=== PATIENT | male | born 1960 | race Caucasian/White ===

== ENCOUNTER 2016-09-12 07:02 | Observation (INO) ==
[2016-09-12] MEDS ORDERED: 0.9 % Sodium Chloride 1,000 ML IVC ONE (07:20)
[2016-09-12] MEDS ORDERED: Ondansetron 4 MG/2 ML VIAL IVP ONE (07:21)
[2016-09-12] MEDS ORDERED: *HR* Morphine 2 MG/ML SYRINGE IVP ONE ×3 (07:21→11:23)
[2016-09-12 07:41] LABS: Hematocrit 43.2 % (37.5-50.1); Hemoglobin 14.1 g/dL (12.9-16.9); Immature Platelets 10.4 % (1.1-6.1); Mean Corpuscular HGB Conc 32.6 g/dL (31.6-35.5); Mean Corpuscular Hemoglobin 28.2 pg (28.0-33.3); Mean Corpuscular Volume 86.4 fL (83.0-100.0); Mean Platelet Volume 11.5 fL (9.4-12.4); Nucleated Red Blood Cells 2.1 /100 WBC (0); Platelet Count 55 K/mcL (140-400); Red Cell Distribution Width 13.2 % (11.5-14.5)
[2016-09-12 07:47] LABS: INR 1.4; Prothrombin Time 15.4 Seconds (9.4-12.1)
[2016-09-12 07:49] LABS: Activated Partial Thrombo Time 32.1 Seconds (26.0-36.0)
[2016-09-12 07:50] LABS: BUN/Creatinine Ratio 13 (6-26); Blood Urea Nitrogen 15 mg/dL (8-26); Calcium 10.6 mg/dL (8.6-10.8); Carbon Dioxide 29 mEq/L (19-29); Chloride 101 mEq/L (98-109); Glucose 110 mg/dL (70-99); Osmolality,Calculated 293 (280-300); Potassium 4.5 mEq/L (3.5-4.5); Sodium 141 mEq/L (136-145); eGFR For African Americans > 60 (> 60); eGFR For Non-African Americans > 60 (> 60)
[2016-09-12 08:15] LABS: Lymphocytes # 2.5 K/mcL (0.6-4.6); Monocytes # 0.3 K/mcL (0.0-1.3); Neutrophils # 3.5 K/mcL (1.6-8.9); Platelet Estimate Decreased (Normal)
--- NOTE | 2016-09-12 09:17 | Emergency Department Note ---
Disposition Clinical Impression: Chest pain Qualifiers: Chest pain type: unspecified Qualified Code(s): R07.9 - Chest pain, unspecified Dyspnea Qualifiers: Dyspnea type: shortness of breath Qualified Code(s): R06.02 - Shortness of breath Disposition: Home, Self-Care Condition: Fair Time of Disposition: 09:23 SOB HPI - General Chief Complaint: ED Shortness of Breath/Dyspnea Stated Complaint: MARINO Time Seen by Provider: 09/12/16 07:19 Source: patient, family Mode of arrival: private vehicle Limitations: no limitations Nursing Notes Reviewed: Yes Vital Signs Reviewed: Yes - History of Present Illness 56-year-old male presents to the emergency department with complaint of shortness of breath and chest discomfort. Patient states that this began at approximately 0400 hours. Patient was recently seen here in the emergency department 5 days ago for similar symptoms but declined admission for further evaluation. Patient states that the chest discomfort and shortness of breath occurred while he was at rest. He denies any recent fever, chills, nausea or vomiting. He has no additional complaints or concerns at this time. Pt Subjective Complaint: shortness of breath, pain with inspiration, chest pain Onset (ago): hour(s) Severity: moderate, severe Consistency/Duration: intermittent, gradually worsening Improves with: nothing Worsens with: exertion Associated symptoms: Reports: chest pain, pain with inspiration Cough present: Yes Cough Description: Involuntary, Non-Productive Cough Frequency: Intermittent Sputum production: No Sputum Amount: None - Related Data Home oxygen amount: none Home Medications Medication Instructions Recorded Confirmed Amitriptyline [Elavil] 25 mg PO HS PRN 08/25/15 09/12/16 Atorvastatin [Lipitor] 80 mg PO HS 08/25/15 09/12/16 traMADol [Ultram] 50 mg PO TID PRN 08/25/15 09/12/16 Aspirin Enteric Coated [Aspirin EC] 81 mg PO DAILY 09/22/15 09/12/16 Cholecalciferol (Vitamin D3) 1,000 unit PO DAILY 09/12/16 09/12/16 [Vitamin D] Furosemide [Lasix] 20 mg PO AD PRN 09/12/16 09/12/16 Lisinopril [Zestril] 10 mg PO DAILY 09/12/16 09/12/16 Omeprazole [PriLOSEC] 40 mg PO DAILY 09/12/16 09/12/16 Tamsulosin [Flomax] 0.4 mg PO DAILY 09/12/16 09/12/16 Allergies Allergy/AdvReac Type Severity Reaction Status Date / Time Penicillins Allergy See Verified 09/12/16 10:05 Comments All systems ED: reviewed and negative except as stated. Constitutional: Denies: fever, chills Cardiovascular: Reports: chest pain. Denies: palpitations Respiratory: Reports: cough, dyspnea Gastrointestinal: Denies: abdominal pain, nausea, vomiting Musculoskeletal: Denies: back pain, neck pain Neurological: Denies: headache Psychiatric: Denies: anxiety, depression, suicidal thoughts, homicidal thoughts Past Medical History - Past Medical History Attestation: Yes The following information was validated with the patient. Source: patient, nursing notes reviewed Medical history: Reports: cancer, hyperlipidemia, hypertension, other Surgical history: Reports: orthopedic, other, other Psychiatric history: Reports: anxiety, depression - Social History Smoking Status: Former smoker Smokeless Tobacco Status: Yes Alcohol use: Reports: none Drug use: Reports: none Physical Exam - General Limitations: no limitations General appearance: alert, in no apparent distress - Head Head exam: atraumatic, normocephalic, normal inspection - Eye Eye exam: Present: normal appearance, PERRL - Neck Neck exam: Present: normal inspection, full ROM, trachea midline - Chest Chest inspection: Present: normal inspection, symmetric chest wall rise - Respiratory Respiratory exam: Present: normal lung sounds bilaterally. Absent: respiratory distress - Cardiovascular Cardiovascular exam: Present: regular rate, normal rhythm, normal heart sounds - Extremities Exam Extremities exam: Present: normal inspection, full ROM. Absent: tenderness, pedal edema - Expanded Lower Extremity Exam Gait: observed and normal - Back Exam Back exam: Present: normal inspection, full ROM. Absent: tenderness - Neurological Exam Neurological exam: Present: alert, oriented X3 - Psychiatric Psychiatric exam: Present: normal affect, normal mood - Skin Skin exam: Present: warm, dry, intact, normal color Course Vital Signs Temperature 98.0 F 09/12/16 07:03 Pulse Rate 82 09/12/16 07:03 Respiratory Rate 25 09/12/16 07:03 Blood Pressure 161/82 09/12/16 07:03 O2 Sat by Pulse Oximetry 99 09/12/16 07:03 Temperature 98.3 F 08/07/17 15:06 Pulse Rate 80 09/13/16 15:06 Respiratory Rate 14 09/13/16 15:06 Blood Pressure 144/77 09/13/16 15:06 O2 Sat by Pulse Oximetry 97 09/13/16 15:06 Oxygen Delivery Oxygen Delivery Room Air Shortness of Breath/Dyspnea - Lab Data Lab results reviewed: Yes I reviewed the patient's lab results. Result diagrams: 09/13/16 03:40 09/13/16 03:40 Lab Results 09/12/16 09/12/16 09/12/16 Range/Units 07:14 07:14 07:14 WBC 6.3 (4.3-11.1) K/mcL RBC 5.00 (4.19-5.50) M/mcL Hgb 14.1 (12.9-16.9) g/dL Hct 43.2 (37.5-50.1) % MCV 86.4 (83.0-100.0) fL MCH 28.2 (28.0-33.3) pg MCHC 32.6 (31.6-35.5) g/dL RDW 13.2 (11.5-14.5) % Plt Count 55 L (140-400) K/mcL MPV 11.5 (9.4-12.4) fL Seg Neutrophils % 52.0 % Band Neutrophils % 4.0 (0-4) % Lymphocytes % 40.0 % Monocytes % 4.0 % Neutrophils # 3.5 (1.6-8.9) K/mcL Lymphocytes # 2.5 (0.6-4.6) K/mcL Monocytes # 0.3 (0.0-1.3) K/mcL Nucleated RBCs/100 WBC 2.1 H (0) /100 WBC Platelet Estimate Decreased L (Normal) Immature Plt Fraction 10.4 H (1.1-6.1) % PT 15.4 H (9.4-12.1) Seconds INR 1.4 APTT 32.1 (26.0-36.0) Seconds Sodium 141 (136-145) mEq/L Potassium 4.5 (3.5-4.5) mEq/L Chloride 101 (98-109) mEq/L Carbon Dioxide 29 (19-29) mEq/L BUN 15 (8-26) mg/dL Creatinine 1.17 (0.72-1.25) mg/dL Est GFR ( Amer) > 60 (> 60) Est GFR (Non-Af Amer) > 60 (> 60) BUN/Creatinine Ratio 13 (6-26) Glucose 110 H (70-99) mg/dL Calculated Osmolality 293 (280-300) Lactic Acid (0.5-2.2) mmol/L Calcium 10.6 (8.6-10.8) mg/dL Troponin I (0-0.03) ng/mL B-Natriuretic Peptide (0-100) pg/mL 09/12/16 09/12/16 09/12/16 Range/Units 07:14 07:14 07:14 WBC (4.3-11.1) K/mcL RBC (4.19-5.50) M/mcL Hgb (12.9-16.9) g/dL Hct (37.5-50.1) % MCV (83.0-100.0) fL MCH (28.0-33.3) pg MCHC (31.6-35.5) g/dL RDW (11.5-14.5) % Plt Count (140-400) K/mcL MPV (9.4-12.4) fL Seg Neutrophils % % Band Neutrophils % (0-4) % Lymphocytes % % Monocytes % % Neutrophils # (1.6-8.9) K/mcL Lymphocytes # (0.6-4.6) K/mcL Monocytes # (0.0-1.3) K/mcL Nucleated RBCs/100 WBC (0) /100 WBC Platelet Estimate (Normal) Immature Plt Fraction (1.1-6.1) % PT (9.4-12.1) Seconds INR APTT (26.0-36.0) Seconds Sodium (136-145) mEq/L Potassium (3.5-4.5) mEq/L Chloride (98-109) mEq/L Carbon Dioxide (19-29) mEq/L BUN (8-26) mg/dL Creatinine (0.72-1.25) mg/dL Est GFR ( Amer) (> 60) Est GFR (Non-Af Amer) (> 60) BUN/Creatinine Ratio (6-26) Glucose (70-99) mg/dL Calculated Osmolality (280-300) Lactic Acid 1.1 (0.5-2.2) mmol/L Calcium (8.6-10.8) mg/dL Troponin I 0.00 (0-0.03) ng/mL B-Natriuretic Peptide 86 (0-100) pg/mL - Radiology Data Radiology results reviewed: Yes I reviewed the patient's radiology results. - EKG Data EKG attestation: Yes I reviewed and interpreted this EKG. EKG shows normal: Reports: sinus rhythm Rate: Reports: normal Rhythm: Reports: NSR [place]/QRS: Reports: normal
[2016-09-12] MEDS ORDERED: Levofloxacin 750 MG/150 ML 750 MG/150 ML BAG IVPB ONE (09:19)
[2016-09-12] MEDS ORDERED: Naloxone 0.4 MG/ML INJ IVP PRN (12:32)
[2016-09-12] MEDS ORDERED: Ondansetron 4 MG/2 ML VIAL IVP PRN (12:32)
[2016-09-12] MEDS ORDERED: Ketorolac 30 MG/ML VIAL IVP ONE (13:07)
--- NOTE | 2016-09-12 13:16 | Internal Med History&Physical ---
<Jane Soto M - Last Filed: 09/12/16 13:11> Date of Encounter: 09/12/16 Time of Encounter: 13:12 Assessment and Plan (1) Chest pain Current visit: Yes Status: Acute Patient reporting severe sharp chest pain radiating from back. Reproducible with palpation, worse with movement. EKG showed NSR. Initial troponin negative. Suspect pain is musculo-skeletal, but will rule out ACS. Continuous case monitor serial troponins echocardiogram cardiology consulted. NPO after midnight for AM testing. Qualifiers: Chest pain type: unspecified Qualified Code(s): R07.9 - Chest pain, unspecified (2) Pneumonia Current visit: Yes Status: Acute CTA of chest shows enlarging opacity in right lower lobe suspicious for pneumonia, though nodule not ruled out. Patient reporting poor appetite, fevers , chills, and cough. IVPB Levaquin. titrate oxygen to maintain saturation > 92% duonebs QID PRN. Qualifiers: Pneumonia type: due to unspecified organism Laterality: right Lung location: lower lobe of lung Qualified Code(s): J18.1 - Lobar pneumonia, unspecified organism (3) Thoracic back pain Current visit: Yes Status: Acute Patient reporting severe pain to his back radiating to his chest. Worse with movement, palpation. Not significantly relieved by morphine. One time dose of Flexeril ordered. Toradal Q6h PRN. Dilaudid Q4hr prn. Qualifiers: Chronicity: unspecified Back pain laterality: midline Qualified Code(s): M54.6 - Pain in thoracic spine (4) Thrombocytopenia Current visit: Yes Status: Acute Patient with thrombocytopenia, Plt of 55 today. He was recently seen by hematology who recommended outpatient follow up for bone marrow biopsy. Plan for appointment with Heme/onc on discharge. (5) Lung nodule Current visit: Yes Status: Acute CTA revealed opacity in RLL enlarged from previous study. Consistent with Pnuemonia given patient's reports of fever, chills, poor appetite and cough. Will treat for pneumonia. However, given patient's significant smoking history , will need follow up with heme/onc as outpatient and Surveillance CTs to follow possible nodule. (6) DVT prophylaxis Current visit: Yes Status: Acute sequential compression devices. Thrombocytopenic with Plt of 55, pharmacologic prophylaxis contraindicated. Internal Medicine - H&P: HPI Chief complaint: chest pain Admitted From: Emergency Dept Plans for Post Hospital Care: Home History of present illness: Mr. Alston is a 56 year old male with hypertension, hyperlipidemia, sleep apnea, COPD, thrombocytopenia recently diagnosed, presented to the emergency department today with complaints of chest pain and shortness of breath. Patient reports that pain started at 4 AM woke him from sleep, he reports it is in his back radiating around to his chest, his severe, only mildly relieved by pain medicine given in the ED. He describes the pain as sharp, severe, is worse with movement of his arms, with walking, and with palpation. He reports it feels the best when he is standing still and not moving. She had this pain on and off for the last week or so, usually presenting in the morning but relieving after half hour, at this time his pain is not relieved. He also reports a nonproductive cough, fevers and chills on and off, and occasional dizziness. He denies any palpitations, headache, diarrhea, nausea, vomiting. He reports shortness of breath that he attributes to the pain. Evaluation in emergency department revealed thrombocytopenia with platelets of 55, troponin was negative at 0.00, lactate was normal at 1.1. BNP was normal at 86. EKG showed normal sinus rhythm. Chest x-ray showed no acute process. CTA showed no evidence of acute pulmonary embolism, enlarging focal opacity in right lower lobe suspected pneumonia, but follow-up with CT in 3 months recommended. On exam, patient alert and oriented, in no acute distress. Heart has regular rate and rhythm lungs with bilateral rhonchi. Peripheral pulses intact no peripheral edema. Palpation of back and chest reproduced pain. Manipulation of upper extremities also exacerbated patient's pain. Past Med Surg Social Fam HX - Past Medical History Medical history: COPD, hyperlipidemia, hypertension, other (thrombocytopenia) Psychiatric history: anxiety, depression - Past Surgical History Surgical History: orthopedic, other, other (cleft palate, wrist, vocal cord polyp removal) - Social History Smoking Status: Former smoker (60 pack year history) Smokeless Tobacco Status: Yes Alcohol use: none Drug use: none - Family History Father Living Status: Still Living Hx Family Cardiac Disorders: Yes Hx Family Cancer: Yes Mother Living Status: Hx Family Cardiac Disorders: Yes (Myocardial infarction, hypertension) Hx Family Cancer: Yes (Breast cancer) Hx Family Neurologic Disorders: Yes (Cerebrovascular accident) Sister Living Status: Hx Family Cancer: Yes (Uterine cancer) Hx Family Neurologic Disorders: Yes (Brain aneurysm) Internal Medicine - H&P: Meds Amitriptyline [Elavil] 25 mg PO HS PRN 08/25/15 [History] Atorvastatin [Lipitor] 80 mg PO HS 08/25/15 [History] traMADol [Ultram] 50 mg PO TID PRN 08/25/15 [History] Aspirin Enteric Coated [Aspirin EC] 81 mg PO DAILY 09/22/15 [History] Cholecalciferol (Vitamin D3) [Vitamin D] 1,000 unit PO DAILY 09/12/16 [History] Furosemide [Lasix] 20 mg PO AD PRN 09/12/16 [History] Lisinopril [Zestril] 10 mg PO DAILY 09/12/16 [History] Omeprazole [PriLOSEC] 40 mg PO DAILY 09/12/16 [History] Tamsulosin [Flomax] 0.4 mg PO DAILY 09/12/16 [History] Allergies Penicillins Allergy (Verified 09/12/16 10:05) See Comments Patient states this reaction occurred when he was a child- All Systems PM: A 10-system review of systems was performed and is negative for pertinent findings except as documented above in the HPI. - Constitutional Constitutional: chills, fever(s), no night sweats - EENT Eyes: no change in vision, no discharge, no pain, no photophobia Ears: no ear discharge, no ear pain, no tinnitus Nose, mouth and throat: no dysphagia, no nasal discharge, no neck pain, no sore throat - Cardiovascular Cardiovascular ROS IM: chest pain, dyspnea, lightheadedness, no diaphoresis, no palpitations, no syncope - Respiratory Respiratory: cough, no dyspnea, no wheezing, no excessive phlegm production - Gastrointestinal Gastrointestinal: no abdominal pain, no diarrhea, no hematemesis, no hematochezia, no melena, no nausea, no vomiting - Musculoskeletal Musculoskeletal ROS IM: numbness, tingling (chronic, in extremities) - Integumentary Integumentary IM: no rash, no unusual bruising - Neurological Neurological ROS: no confusion, no convulsions, no focal weakness, no numbness, no tingling, no tremor(s) - Hematologic/Lymphatic Hematologic/Lymphatic: no easy bruising - Constitutional Vitals: Temp Pulse Resp BP Pulse Ox 98.7 F 75 16 133/81 93 09/12/16 11:54 09/12/16 11:54 09/12/16 11:54 09/12/16 11:54 09/12/16 11:54 General appearance: Present: A&O X 3, pleasant, no acute distress - Head Head exam: Present: atraumatic, normocephalic - Eye Eye exam: Present: PERRL, conjuntiva pink, sclera anicteric Pupils: Present: PERRL - Neck Neck exam general surgery: Present: supple, trachea midline. Absent: lymphadenopathy - Respiratory Respiratory exam: Present: rhonchi. Absent: accessory muscle use, rales, wheezes - Cardiovascular Cardiovascular exam: Present: RRR, +S1, +S2. Absent: diastolic murmur, gallop, rubs, systolic murmur - GI/Abdominal GI/Abdominal exam: Present: normal bowel sounds, soft, no peritoneal signs. Absent: distended, tenderness - Extremities Exam Extremities exam: Present: warm, radial pulses palpable and symetrical. Absent : calf tenderness, cyanotic, pedal edema - Back Exam Back exam: Present: paraspinal tenderness, vertebral tenderness - Neurological Exam Neurological exam: Present: CN II-XII intact, oriented X3, no focal deficits. Absent: facial droop, speech deficit - Skin Skin exam: Present: dry, intact Internal Med - H&P Results - Labs CBC & Chem 7: 09/12/16 07:14 09/12/16 07:14 Labs: All Lab Results (24 Hours) 09/12/16 09/12/16 09/12/16 Range/Units 07:14 07:14 07:14 WBC 6.3 (4.3-11.1) K/mcL RBC 5.00 (4.19-5.50) M/mcL Hgb 14.1 (12.9-16.9) g/dL Hct 43.2 (37.5-50.1) % MCV 86.4 (83.0-100.0) fL MCH 28.2 (28.0-33.3) pg MCHC 32.6 (31.6-35.5) g/dL RDW 13.2 (11.5-14.5) % Plt Count 55 L (140-400) K/mcL MPV 11.5 (9.4-12.4) fL Seg Neutrophils % 52.0 % Band Neutrophils % 4.0 (0-4) % Lymphocytes % 40.0 % Monocytes % 4.0 % Neutrophils # 3.5 (1.6-8.9) K/mcL Lymphocytes # 2.5 (0.6-4.6) K/mcL Monocytes # 0.3 (0.0-1.3) K/mcL Nucleated RBCs/100 WBC 2.1 H (0) /100 WBC Platelet Estimate Decreased L (Normal) Immature Plt Fraction 10.4 H (1.1-6.1) % PT 15.4 H (9.4-12.1) Seconds INR 1.4 APTT 32.1 (26.0-36.0) Seconds Sodium 141 (136-145) mEq/L Potassium 4.5 (3.5-4.5) mEq/L Chloride 101 (98-109) mEq/L Carbon Dioxide 29 (19-29) mEq/L BUN 15 (8-26) mg/dL Creatinine 1.17 (0.72-1.25) mg/dL Est GFR ( Amer) > 60 (> 60) Est GFR (Non-Af Amer) > 60 (> 60) BUN/Creatinine Ratio 13 (6-26) Glucose 110 H (70-99) mg/dL Calculated Osmolality 293 (280-300) Lactic Acid (0.5-2.2) mmol/L Calcium 10.6 (8.6-10.8) mg/dL Troponin I (0-0.03) ng/mL B-Natriuretic Peptide (0-100) pg/mL 09/12/16 09/12/16 09/12/16 Range/Units 07:14 07:14 07:14 WBC (4.3-11.1) K/mcL RBC (4.19-5.50) M/mcL Hgb (12.9-16.9) g/dL Hct (37.5-50.1) % MCV (83.0-100.0) fL MCH (28.0-33.3) pg MCHC (31.6-35.5) g/dL RDW (11.5-14.5) % Plt Count (140-400) K/mcL MPV (9.4-12.4) fL Seg Neutrophils % % Band Neutrophils % (0-4) % Lymphocytes % % Monocytes % % Neutrophils # (1.6-8.9) K/mcL Lymphocytes # (0.6-4.6) K/mcL Monocytes # (0.0-1.3) K/mcL Nucleated RBCs/100 WBC (0) /100 WBC Platelet Estimate (Normal) Immature Plt Fraction (1.1-6.1) % PT (9.4-12.1) Seconds INR APTT (26.0-36.0) Seconds Sodium (136-145) mEq/L Potassium (3.5-4.5) mEq/L Chloride (98-109) mEq/L Carbon Dioxide (19-29) mEq/L BUN (8-26) mg/dL Creatinine (0.72-1.25) mg/dL Est GFR ( Amer) (> 60) Est GFR (Non-Af Amer) (> 60) BUN/Creatinine Ratio (6-26) Glucose (70-99) mg/dL Calculated Osmolality (280-300) Lactic Acid 1.1 (0.5-2.2) mmol/L Calcium (8.6-10.8) mg/dL Troponin I 0.00 (0-0.03) ng/mL B-Natriuretic Peptide 86 (0-100) pg/mL - Diagnostic Studies CT scan - chest Additional comments: Chest CTA 09/12/16 07:21 IMPRESSION: No pulmonary embolus. Enlarging, focal opacity in the right lower lobe, suspected pneumonia. Underlying pulmonary nodule is still concern. Follow-up CT chest, after treatment, is recommended in 3 months. D/ / Scott Manrique MD / Scott Manrique MD Interpreting Provider: Scott Manrique MD Chest x-ray Additional comments: Chest X-Ray 09/12/16 07:20 IMPRESSION: No acute process. D/ / Chucky Lennon MD / Chucky Lennon MD Interpreting Provider: Chucky Lennon MD <Willis Monte - Last Filed: 09/12/16 18:53> Date of Encounter: 09/12/16 Internal Medicine - H&P: HPI History of present illness: Mr. Alston is a 56 year old male All Systems PM: A 10-system review of systems was performed and is negative for pertinent findings except as documented above in the HPI. - Constitutional Vitals: Temp Pulse Resp BP Pulse Ox 97.7 F 75 16 153/78 95 09/12/16 15:48 09/12/16 15:48 09/12/16 15:48 09/12/16 15:48 09/12/16 15:48 Internal Med - H&P Results - Labs CBC & Chem 7: 09/12/16 07:14 09/12/16 07:14 Labs: Cardiac Enzymes 09/12/16 Range/Units 13:22 Troponin I 0.00 (0-0.03) ng/mL - Attending Attestation I have personally performed a face to face evaluation on this patient. I have reviewed and agree with the care plan. History and Exam by me shows: Mr. Alston is a 56y/o male presented to ED with chest discomfort. Found to have pneumonia. Pain is pleuritic and musculoskeletal in nature. Toradol has helped some. Coughing some. No GI issues. Exam Alert. Mod distress with deep breath and movement. Mucus membranes moist Heart reg Lungs with ? pleural friction rub on R Abd soft I/P 1. Chest pain - pleuritic 2. Pneumonia Further diagnoses and plan as above.
[2016-09-12] MEDS ORDERED: Ipratropium/Albuterol Neb 3 ML IH PRN (13:23)
[2016-09-12] MEDS: *HR* HYDROcodone/Acet 5/325 mg TABLET PO PRN (14:46)
[2016-09-12] MEDS: *HR* HYDROmorphone (PF) 1 MG/ML SYRINGE IVP PRN ×2 (17:32→21:57)
[2016-09-12] MEDS: Ketorolac 30 MG/ML VIAL IVP PRN (19:53)
[2016-09-13] MEDS: *HR* HYDROcodone/Acet 5/325 mg TABLET PO PRN ×3 (00:31→20:19)
[2016-09-13] MEDS: Ketorolac 30 MG/ML VIAL IVP PRN ×2 (02:42→09:20)
[2016-09-13 04:14] LABS: Eosinophils # 0.2 K/mcL (0.0-0.6); Hematocrit 40.9 % (37.5-50.1); Hemoglobin 13.5 g/dL (12.9-16.9); Immature Platelets 10.5 % (1.1-6.1); Mean Corpuscular Hemoglobin 28.2 pg (28.0-33.3); Mean Corpuscular Volume 85.4 fL (83.0-100.0); Mean Platelet Volume 11.6 fL (9.4-12.4); Monocytes # 0.2 K/mcL (0.0-1.3); Nucleated Red Blood Cells 1.9 /100 WBC (0); Red Blood Count 4.79 M/mcL (4.19-5.50)
[2016-09-13 04:33] LABS: BUN/Creatinine Ratio 12 (6-26); Blood Urea Nitrogen 14 mg/dL (8-26); Calcium 10.2 mg/dL (8.6-10.8); Carbon Dioxide 27 mEq/L (19-29); Chloride 101 mEq/L (98-109); Glucose 100 mg/dL (70-99); Osmolality,Calculated 289 (280-300); Sodium 139 mEq/L (136-145); eGFR For African Americans > 60 (> 60); eGFR For Non-African Americans > 60 (> 60)
[2016-09-13 04:47] LABS: Platelet Count 49 K/mcL (140-400)
[2016-09-13 04:55] LABS: Lymphocytes # 1.4 K/mcL (0.6-4.6); Neutrophils # 3.2 K/mcL (1.6-8.9)
[2016-09-13 04:56] LABS: Platelet Estimate Decreased (Normal); Reactive Lymphocytes Present (Not Present)
--- NOTE | 2016-09-13 08:23 | Internal Med Progress Note ---
Date of Encounter: 09/13/16 Time of Encounter: 08:00 - Assessment and plan (1) Chest pain Current Visit: Yes Status: Acute Assessment and plan: Pt reports 6 day history of intermittent right chest pain that would resolve spontaneously. He states that pain became worse yesterday and is now right sided , as well as mid back. He describes it as a dull, throbbing pain, 8/10. He reports diaphoresis, subjective fevers, and chills. Chest xray negative for acute process. CTA with suspected RLL pneumonia. Troponins and BNP negative. Echo results still pending at this time. Pain is reproducible with movement, deep inspiration, and palpation. Most likely due to pneumonia. Consider cardiology consult if not improved with antibiotic treatment. Continue chief airport guide labs and vitals. Qualifiers: Chest pain type: unspecified Qualified Code(s): R07.9 - Chest pain, unspecified (2) Pneumonia Current Visit: Yes Status: Acute Assessment and plan: Identified on CTA chest. Suspected RLL pneumonia, although nodule is not ruled out. He reports subjective fevers, chills, malaise, myalgias, back pain, cough, and anorexia. Community acquired pneumonia. Levaquin IV 02 titrate to maintain sats > 92% Duonebs prn Pt has pleuritic chest pain, treat pain as needed. Qualifiers: Pneumonia type: due to unspecified organism Laterality: right Lung location: lower lobe of lung Qualified Code(s): J18.1 - Lobar pneumonia, unspecified organism (3) Hypertension Current Visit: No Status: Chronic Assessment and plan: Well controlled. Continue low dose of Lisinopril. Qualifiers: Hypertension type: essential hypertension Qualified Code(s): I10 - Essential (primary) hypertension (4) Hyperlipidemia Current Visit: No Status: Chronic Assessment and plan: Chronic. Continue Lipitor. Qualifiers: Hyperlipidemia type: unspecified Qualified Code(s): E78.5 - Hyperlipidemia , unspecified (5) Obesity (BMI 30-39.9) Current Visit: Yes Status: Chronic Assessment and plan: Chronic. Lifestyle and diet modifications. (6) Chest pain Current Visit: No Status: Acute Assessment and plan: Plan as above. Most likely pleuritic chest pain from pneumonia. Qualifiers: Chest pain type: chest pain on breathing Qualified Code(s): R07.1 - Chest pain on breathing; R07.81 - Pleurodynia (7) Thoracic back pain Current Visit: Yes Status: Acute Assessment and plan: Worsens with deep inspiration and movement, non-tender to palpation. Most likely related to pneumonia, pleuritic chest pain. Analgesic pain medication as needed. Qualifiers: Chronicity: unspecified Back pain laterality: midline Qualified Code(s): M54.6 - Pain in thoracic spine (8) Thrombocytopenia Current Visit: Yes Status: Acute Assessment and plan: Plt count 49 today. Pt has seen oncology and will follow up outpatient for bone marrow biopsy. Follow up outpatient. continue to monitor labs. (9) Lung nodule Current Visit: Yes Status: Acute Assessment and plan: Nodule reported on CTA chest, has increased in size from prior study. Recommend repeat study in 3 months after acute illness resolved. (10) DVT prophylaxis Current Visit: Yes Status: Acute Assessment and plan: SCDs ordered. Thrombocytopenia, no pharmacolgical prophylaxis needed. - Time Spent With Patient less than 15 minutes - Subjective Interval history: Pt was seen and assessed at 0800. Pt sleeping, arouses easily. He reports right chest pain this a.m with mid back pain. Right chest pain is reproducible with palpation, movement, and deep inspiration. Pt reports intermittent, dry, non- productive cough and reports subjective fevers at home. States that pain is currently 5/10. - Constitutional Vitals: Temp Pulse Resp BP Pulse Ox 98.2 F 75 15 121/74 96 09/13/16 06:44 09/13/16 06:44 09/13/16 06:44 09/13/16 06:44 09/13/16 06:44 General appearance: Present: A&O X 3, pleasant, no acute distress, answers questions appropriately - Head Head exam: Present: normal inspection - Eye Eye exam: Present: normal appearance, conjuntiva pink - ENT ENT exam: Present: mucous membranes moist, normal exam, normal external ear exam - Neck Neck exam general surgery: Present: normal inspection. Absent: lymphadenopathy , tenderness - Respiratory Respiratory exam: Present: chest wall tenderness, CTAB, rhonchi. Absent: accessory muscle use, decreased breath sounds, prolonged expiratory phase, rales , respiratory distress, stridor, wheezes, tachypnea - Cardiovascular Cardiovascular exam: Present: RRR, +S1, +S2. Absent: clicks, diastolic murmur, gallop, systolic murmur - GI/Abdominal GI/Abdominal exam: Present: distended, normal bowel sounds, soft. Absent: hepatomegaly, tenderness - Extremities Exam Extremities exam: Present: warm, radial pulses palpable and symetrical. Absent : joint swelling, pedal edema, tenderness - Neurological Exam Neurological exam: Present: alert, oriented X3, no focal deficits. Absent: facial droop, speech deficit - Skin Skin exam: Present: dry, intact, warm. Absent: rash Internal Medicine: Result - Labs CBC & Chem 7: 09/13/16 03:40 09/13/16 03:40 Labs: Short CBC 09/13/16 Range/Units 03:40 WBC 5.2 (4.3-11.1) K/mcL Hgb 13.5 (12.9-16.9) g/dL Hct 40.9 (37.5-50.1) % Plt Count 49 L (140-400) K/mcL Neutrophils # 3.2 (1.6-8.9) K/mcL BMP 09/13/16 03:40 Sodium 139 Potassium 4.0 Chloride 101 Carbon Dioxide 27 BUN 14 Creatinine 1.13 Glucose 100 H Calcium 10.2 Cardiac Enzymes 09/12/16 09/12/16 Range/Units 13:22 18:32 Troponin I 0.00 0.01 (0-0.03) ng/mL - ABG Interpretation ABG results: PT/INR, D-dimer PT 15.4 Seconds (9.4-12.1) H 09/12/16 07:14 Consult Discharge Plan - Plan Referrals: Anne Bell MD [Primary Care Provider] -
[2016-09-13] MEDS: Levofloxacin 750 MG/150 ML 750 MG/150 ML BAG IVPB SCH (09:20)
[2016-09-13] MEDS: Aspirin Enteric Coated 81 MG Tablet PO SCH (09:21)
--- NOTE | 2016-09-13 16:20 | Electrocardiograph Report ---
[email or web address] Test Date: 2016-09-12 Pat Name: Tariq Alston Department: 104 Room: 3B33 Gender: M [employer]rentice: : 1960 Requested By: Rubio Arrieta Order Number: [id number] Reading MD: Michael Shoemaker MD Measurements Intervals Coy Rate: 72 P: 64 MS: 139 QRS: 61 QRSD: 94 T: 34 QT: 330 QTc: 355 Interpretive Statements SINUS RHYTHM POSSIBLE INFERIOR MYOCARDIAL INFARCTION, PROBABLY OLD Electronically Signed On 09-13-2016 16:19:20 EDT by Michael Shoemaker MD
[2016-09-13] MEDS: *HR* HYDROmorphone (PF) 1 MG/ML SYRINGE IVP PRN (19:28)
[2016-09-13] MEDS ORDERED: *HR* HYDROmorphone (PF) 1 MG/ML SYRINGE IVP PRN (23:31)
[2016-09-14] MEDS: Ketorolac 30 MG/ML VIAL IVP PRN (02:09)
[2016-09-14 04:20] LABS: Red Cell Distribution Width 12.9 % (11.5-14.5)
[2016-09-14 04:22] LABS: Hematocrit 37.1 % (37.5-50.1); Hemoglobin 12.3 g/dL (12.9-16.9); Immature Platelets 11.5 % (1.1-6.1); Mean Corpuscular HGB Conc 33.2 g/dL (31.6-35.5); Mean Corpuscular Hemoglobin 27.8 pg (28.0-33.3); Mean Corpuscular Volume 83.9 fL (83.0-100.0); Mean Platelet Volume 10.9 fL (9.4-12.4); Nucleated Red Blood Cells 1.9 /100 WBC (0); Red Blood Count 4.42 M/mcL (4.19-5.50)
[2016-09-14 04:34] LABS: BUN/Creatinine Ratio 20 (6-26); Blood Urea Nitrogen 17 mg/dL (8-26); Calcium 9.8 mg/dL (8.6-10.8); Carbon Dioxide 25 mEq/L (19-29); Chloride 100 mEq/L (98-109); Glucose 95 mg/dL (70-99); Osmolality,Calculated 285 (280-300); Potassium 3.7 mEq/L (3.5-4.5); Sodium 137 mEq/L (136-145); eGFR For African Americans > 60 (> 60); eGFR For Non-African Americans > 60 (> 60)
[2016-09-14 05:23] LABS: Platelet Count 41 K/mcL (140-400)
[2016-09-14 05:35] LABS: Monocytes # 0.4 K/mcL (0.0-1.3); Neutrophils # 2.4 K/mcL (1.6-8.9); Platelet Estimate Marked Decrease (Normal)
[2016-09-14] MEDS: Levofloxacin 750 MG/150 ML 750 MG/150 ML BAG IVPB SCH (09:54)
[2016-09-14] MEDS: Aspirin Enteric Coated 81 MG Tablet PO SCH (09:54)
--- NOTE | 2016-09-14 11:09 | Discharge Summary ---
Date of Encounter: 09/14/16 Time of Encounter: 10:15 - Discharge Diagnosis (1) Chest pain Priority: Primary Status: Acute Comments: Patient with mild, reproducible chest pain on day of discharge consistent with musculoskeletal etiology. Troponins negative 3. No ECG changes. Low suspicion for ACS. Qualifiers: Chest pain type: chest pain on breathing Qualified Code(s): R07.1 - Chest pain on breathing; R07.81 - Pleurodynia (2) Pneumonia Priority: Primary Status: Acute Comments: Patient denies shortness of breath above his normal day of discharge. Was on room air. Continue levofloxacin. Qualifiers: Pneumonia type: due to unspecified organism Laterality: right Lung location: lower lobe of lung Qualified Code(s): J18.1 - Lobar pneumonia, unspecified organism (3) Dyspnea Priority: Primary Status: Resolved Qualifiers: Dyspnea type: shortness of breath Qualified Code(s): R06.02 - Shortness of breath; R06.00 - Dyspnea, unspecified; R06.01 - Orthopnea (4) Thoracic back pain Priority: Primary Status: Resolved Qualifiers: Chronicity: unspecified Back pain laterality: midline Qualified Code(s): M54.6 - Pain in thoracic spine (5) Lung nodule Priority: Secondary Status: Chronic Comments: Stable, recommendation for repeat imaging in outpatient follow-up in 3 months (6) Hypertension Priority: Secondary Status: Chronic Comments: Normotensive on the day of discharge. Follow-up outpatient. Qualifiers: Hypertension type: essential hypertension Qualified Code(s): I10 - Essential (primary) hypertension (7) Thrombocytopenia Priority: Secondary Status: Chronic Comments: Chronic over the past week, he is following up with oncology outpatient for likely bone marrow biopsy. No signs of active bleeding. (8) Sleep apnea Priority: Secondary Status: Chronic Qualifiers: Sleep apnea type: obstructive Qualified Code(s): G47.33 - Obstructive sleep apnea (adult) (pediatric) (9) DVT prophylaxis Priority: Primary Status: Acute Comments: Observation patient. Up ad camron. Pharmacologic prophylaxis contraindicated secondary to chronic thrombocytopenia (10) Obesity (BMI 30-39.9) Priority: Secondary Status: Chronic - Discharge Medications Prescriptions: Ibuprofen [Motrin] 600 mg PO Q8HR PRN #20 tab PRN Reason: Pain levoFLOXacin [Levofloxacin] 750 mg PO DAILY #8 tablet Home Medications: Amitriptyline [Elavil] 25 mg PO HS PRN 08/25/15 [History] Atorvastatin [Lipitor] 80 mg PO HS 08/25/15 [History] traMADol [Ultram] 50 mg PO TID PRN 08/25/15 [History] Aspirin Enteric Coated [Aspirin EC] 81 mg PO DAILY 09/22/15 [History] Cholecalciferol (Vitamin D3) [Vitamin D3] 1,000 unit PO DAILY 09/12/16 [History] Furosemide [Lasix] 20 mg PO AD PRN 09/12/16 [History] Lisinopril [Zestril] 10 mg PO DAILY 09/12/16 [History] Omeprazole [PriLOSEC] 40 mg PO DAILY 09/12/16 [History] Tamsulosin [Flomax] 0.4 mg PO DAILY 09/12/16 [History] Ibuprofen [Motrin] 600 mg PO Q8HR PRN #20 tab 09/14/16 [Rx] levoFLOXacin [Levofloxacin] 750 mg PO DAILY #8 tablet 09/14/16 [Rx] Allergies/Adverse Reactions: Allergies Penicillins Allergy (Verified 09/12/16 10:05) See Comments Patient states this reaction occurred when he was a child- Procedures/tests Complete & Pending: Procedures Performed prior 72 hours Category Date Time Status EV echocardiogram Routine Y 09/13/16 13:11 Completed Date of admission: 09/12/16 10:00 Primary care physician: Anne Bell MD Discharging clinician: Stephanie Chou Anticipated date of discharge: 09/14/16 - Patient Status Disposition: Home, Self-Care Condition: Fair Functional capacity at discharge: independent ambulation Overall status at discharge: patient is back to baseline - Discharge Instructions Follow Up With: Anne Bell MD [Primary Care Provider] - [facility] [Provider Group] Additional Instructions: Follow-up with primary care provider within one to 2 weeks, follow-up with oncology within 1-2 weeks - Diet and Activity Activity: increase activity as tolerated Diet: low fat, low cholesterol, low salt diet Hospital course: Mr. Alston is a 56 year old male with past medical history hypertension, hyperlipidemia, sleep apnea, COPD, recently diagnosed thrombocytopenia. Patient presented to the emergency department chief complaint of chest pain and shortness of breath. Patient stating the pain started in the middle the night and woke him up from sleep and he reports it as in his back and radiated around to his chest. He described it as severe and mildly relieved with pain medication in the emergency department. Pain also described as sharp, worse with movement, worse with walking, and worse with palpation. Patient stating his pain is abated with standing still and not moving. Patient stating he has had the pain on and off for the last week and usually occurs in the morning and record is self resolving after about a half an hour but this time, the pain did not go away. Patient also endorses nonproductive cough and occasional dizziness. He denied palpitations, headache, nausea vomiting diarrhea. Workup in the emergency department suggestive of possible pneumonia. Chest x-ray negative. Chest CTA negative for PE but revealed suspected right lower lobe pneumonia. CTA also revealed pulmonary nodule with recommendation for follow- up CT in 3 months. He was admitted to the hospitalist service for further evaluation and management. Troponins negative 3. No ECG changes. Echocardiogram unremarkable with ejection fraction of 60% with moderate diastolic dysfunction. Patient euvolemic on examination on day of discharge. He was recently seen by hematology who recommended outpatient follow-up for a bone marrow biopsy. Thrombocytopenia noted during this visit, no signs of active bleeding and he will follow up outpatient with hematology. Patient was admitted and observed over the course of 2 nights. On day of discharge, he denied shortness of breath above his norm and tolerated room air well. He was treated with levofloxacin while admitted and this was continued upon discharge. He still had mild chest pain that was reproducible with palpation and consistent with musculoskeletal etiology with low suspicion for ACS during this admission. He was sent home with ibuprofen as needed. He was discharged home in stable condition with close outpatient follow-up recommended. ITS Impressions Chest X-Ray 09/12/16 07:20 IMPRESSION: No acute process. D/ / Chucky Lennon MD / Chucky Lennon MD Interpreting Provider: Chucky Lennon MD Chest CTA 09/12/16 07:21 IMPRESSION: No pulmonary embolus. Enlarging, focal opacity in the right lower lobe, suspected pneumonia. Underlying pulmonary nodule is still concern. Follow-up CT chest, after treatment, is recommended in 3 months. D/ / Scott Manrique MD / Scott Manrique MD Interpreting Provider: Scott Manrique MD Echocardiogram 09/13/16 13:11 Impressions: LVEF 60%. Normal LV chamber size and function. Moderate left ventricular diastolic dysfunction. Mild concentric left ventricular hypertrophy. Normal right ventricular structure and function. Unable to accurately estimate RVSP due to lack of TR jet. No significant valvular dysfunction. - Time Spent with Patient Total time spent providing and/or coordinating discharge services: - Constitutional Vitals: Temp Pulse Resp BP Pulse Ox 98.2 F 78 14 124/69 96 09/14/16 07:09 09/14/16 07:09 09/14/16 07:09 09/14/16 07:09 09/14/16 07:09 General appearance: Present: A&O X 3, pleasant, no acute distress, answers questions appropriately - Head Head exam: Present: atraumatic, normocephalic - Eye Eye exam: Present: PERRL, conjuntiva pink, sclera anicteric Pupils: Present: PERRL - Neck Neck exam general surgery: Present: supple, trachea midline. Absent: lymphadenopathy - Respiratory Respiratory exam: Present: decreased breath sounds. Absent: accessory muscle use, rales, respiratory distress, rhonchi, wheezes - Cardiovascular Cardiovascular exam: Present: RRR, +S1, +S2. Absent: diastolic murmur, gallop, rubs, systolic murmur - GI/Abdominal GI/Abdominal exam: Present: normal bowel sounds, soft, no peritoneal signs. Absent: distended, tenderness - Extremities Exam Extremities exam: Present: warm, radial pulses palpable and symetrical. Absent : calf tenderness, cyanotic, pedal edema - Neurological Exam Neurological exam: Present: alert, CN II-XII intact, normal gait, oriented X3, no focal deficits, strengths equal and symetr throughout. Absent: pronater drift, facial droop, speech deficit - Skin Skin exam: Present: dry, intact, normal color, warm
[2016-09-14 11:52] VITALS: BP 143/79
== END 2016-09-14 13:51 | disposition home or self-care (01) ==
LOC: 3BNU 07:02 → EMEROO 07:02 → SUATTDRO 10:00 → 3BNU 11:41
PROVIDERS: ADMIT Nurse Practitioner Family; ATTEND Nurse Practitioner Family

== ENCOUNTER 2017-01-05 11:14 | Inpatient (IN) ==
--- NOTE | 2017-01-05 13:24 | Pallative History & Physical ---
Date of Encounter: 01/05/17 Time of Encounter: 20:20 Assessment and Plan (1) AML (acute myeloid leukemia) Current visit: Yes Status: Acute This will be the hospice diagnosis. No Further treatment will be entertained. 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 Patient is not eating or drinking no artificial feeding done. Qualifiers: CVA mechanism: occlusion Precerebral and cerebral artery: unspecified precerebral artery Qualified Code(s): I63.20 - Cerebral infarction due to unspecified occlusion or stenosis of unspecified precerebral arteries (3) Goals of care, counseling/discussion Current visit: Yes Status: Acute DNR comfort care, patient is GIP for symptom management at end-of-life. Patient is not eating or drinking no feeding tube will be entertained patient will be given comfort meds only. (4) Pain after cerebrovascular accident (CVA) Current visit: Yes Status: Acute Patient has IV Dilaudid available oral morphine and Lidoderm patch. Internal Medicine - H&P: HPI Admitted From: Hospital to Hospital Transfer Plans for Post Hospital Care: Hospice - Home History of present illness: Mr. Alston is a 56 year old male A history of relapsed AML, recent middle cerebral artery CVA with thrombectomy approximately 2 months ago he admitted to the [facility] on December 28 are his vision has been can continue to decline metabolic encephalopathy, bili, inability to swallow and now with a recurrent stroke. Patient's family has decided against any further active therapy even the AML with a CVA as there is no further therapy truly available are requesting sedation to inpatient hospice. In patient hospice ears to be appropriate for this patient for pain control purposes and the patient that appears to be actively dying. She will be transferred to this Medical Center due to the proximity to home for his family. Past Med Surg Social Fam HX - Past Medical History Medical history: cancer, hyperlipidemia, hypertension, other Psychiatric history: anxiety, depression - Past Surgical History Surgical History: orthopedic, other, other - Social History Smoking Status: Former smoker Smokeless Tobacco Status: Yes Alcohol use: none Drug use: none - Family History Father Living Status: Still Living Hx Family Cardiac Disorders: Yes Hx Family Cancer: Yes Mother Living Status: Hx Family Cardiac Disorders: Yes (Myocardial infarction, hypertension) Hx Family Cancer: Yes (Breast cancer) Hx Family Neurologic Disorders: Yes (Cerebrovascular accident) Sister Living Status: Hx Family Cancer: Yes (Uterine cancer) Hx Family Neurologic Disorders: Yes (Brain aneurysm) Internal Medicine - H&P: Meds Amitriptyline [Elavil] 25 mg PO HS PRN 08/25/15 [History] Atorvastatin [Lipitor] 80 mg PO HS 08/25/15 [History] traMADol [Ultram] 50 mg PO TID PRN 08/25/15 [History] Aspirin Enteric Coated [Aspirin EC] 81 mg PO DAILY 09/22/15 [History] Cholecalciferol (Vitamin D3) [Vitamin D3] 1,000 unit PO DAILY 09/12/16 [History] Furosemide [Lasix] 20 mg PO AD PRN 09/12/16 [History] Lisinopril [Zestril] 10 mg PO DAILY 09/12/16 [History] Omeprazole [PriLOSEC] 40 mg PO DAILY 09/12/16 [History] Tamsulosin [Flomax] 0.4 mg PO DAILY 09/12/16 [History] Ibuprofen [Motrin] 600 mg PO Q8HR PRN #20 tab 09/14/16 [Rx] levoFLOXacin [Levofloxacin] 750 mg PO DAILY #8 tablet 09/14/16 [Rx] Cyclobenzaprine [Flexeril] 10 mg PO BID #10 tablet 09/20/16 [Rx] PredniSONE [Deltasone] 40 mg PO DAILY #10 tablet 09/20/16 [Rx] 3 Allergy/AdvReac Type Severity Reaction Status Date / Time Penicillins Allergy See Verified 09/12/16 10:05 Comments ROS unobtainable: due to mental status Palliative Care-Exam - Constitutional General appearance: Present: no acute distress - Head Head Exam: Present: atraumatic - Eye Eye exam: Present: normal appearance - ENT ENT exam: Present: mucous membranes dry - Respiratory Respiratory exam: Present: decreased breath sounds - Cardiovascular Cardiovascular exam: Present: RRR - GI/Abdominal Exam GI/Abdominal exam: Present: diminished bowel sounds, soft. Absent: tenderness - Extremities Exam Extremities exam: Present: normal inspection. Absent: pedal edema, tenderness - Neurological Exam Neurological exam: Present: altered - Psychiatric Psychiatric exam: Absent: agitated, anxious - Skin Skin exam: Present: dry, warm Palliative Quality Palliative Quality: Screen for Code Status: Yes, Screen for Goals of Care: Yes, Screen for Pain: Yes, If Pain Regimen Started, Initiate Bowel Regimen: Yes, Screen for Nausea/Vomitting: Yes
[2017-01-05] MEDS ORDERED: Ondansetron 4 MG/2 ML VIAL IVP PRN (14:53)
[2017-01-05] MEDS ORDERED: hydrALAZINE 25 MG TABLET PO PRN (14:53)
[2017-01-05] MEDS ORDERED: Nystatin SUSP 5 ML UD.LIQ GTUBE SCH (17:00)
[2017-01-05] MEDS ORDERED: *HR* Methadone 5 MG TABLET PO SCH (18:00)
[2017-01-05] MEDS: *HR* LORazepam Oral Conc 2 MG/ML PO PRN (20:36)
[2017-01-05] MEDS: *HR* HYDROmorphone (PF) 1 MG/ML SYRINGE IVP PRN (21:49)
[2017-01-05] MEDS: Haloperidol Oral Conc 10 MG/5 ML UDC PO PRN (21:49)
[2017-01-05] MEDS: Bisacodyl 10 MG RECTAL SUPPOSITORY RC SCH (21:50)
[2017-01-05] MEDS: Atropine Sulfate 1% 40 DROP/2 ML BOTTLE SL PRN (21:52)
[2017-01-06] MEDS: *HR* HYDROmorphone (PF) 1 MG/ML SYRINGE IVP PRN ×11 (01:00→23:12)
[2017-01-06] MEDS: Atropine Sulfate 1% 40 DROP/2 ML BOTTLE SL PRN ×7 (01:01→21:43)
[2017-01-06] MEDS: *HR* LORazepam Oral Conc 2 MG/ML PO PRN ×3 (04:08→15:20)
--- NOTE | 2017-01-06 08:08 | Palliative Progress Note ---
<BradySascha mckeon - Last Filed: 01/06/17 11:34> Date of Encounter: 01/06/17 Time of Encounter: 08:08 - Assessment and plan (1) Goals of care, counseling/discussion Current Visit: Yes Status: Acute Assessment and plan: - Pt is DNR-CC receiving symptoms management for AML, multiple CVAs. - Pt's POA does not want a feeding tube at this time. Comfort measures only. - Pt has pain control medications, atropine for secretions, haldol and ativan for anxiety. Ducolax for bowel regimen. (2) AML (acute myeloid leukemia) Current Visit: Yes Status: Acute Assessment and plan: - S/p relapse after treatment - This will be the hospice diagnosis. 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 Transferred from [facility] yesterday after acute CVA - Subsequent decreased mentation and alertness. - Pt is sedated at this time. Unable to assess for degree of impairment. Qualifiers: CVA mechanism: occlusion Precerebral and cerebral artery: unspecified precerebral artery Qualified Code(s): I63.20 - Cerebral infarction due to unspecified occlusion or stenosis of unspecified precerebral arteries (4) Pain after cerebrovascular accident (CVA) Current Visit: Yes Status: Acute Assessment and plan: - Pt is receiving IV dilaudid, as well as lidocaine patch. - Resting comfortably at time of interview. - Time Spent With Patient Total time spent is greater than 50% in coordination of care (as documented) at patient's floor/unit and/or counseling patient: 25 - 35 minutes - Subjective Interval history: Pt was seen and examined at bedside this AM. At time of interview, pt is sedated and resting comfortably. present at bedside. Denies any needs at this time. Reports no issues with patient's care. Palliative Quality Palliative Quality: Screen for Code Status: Yes, Screen for Goals of Care: Yes, Screen for Pain: Yes, If Pain Regimen Started, Initiate Bowel Regimen: Yes, Screen for Nausea/Vomitting: Yes Code Status: 01/05/17 14:53 Resuscitation Status: Active [RES] Stat Comment: Resuscitation Status: DNR-Comfort Care Consult Discharge Plan - Plan Referrals: Anne Bell MD [Primary Care Provider] - <Real Heller - Last Filed: 01/06/17 12:52> Date of Encounter: 01/06/17 - Assessment and plan (1) AML (acute myeloid leukemia) Current Visit: Yes Status: Acute Qualifiers: Leukemia Active/Remission status: relapsed Qualified Code(s): C92.02 - Acute myeloblastic leukemia, in relapse; C92.62 - Acute myeloid leukemia with [id number] in relapse; 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, in relapse (2) CVA (cerebral vascular accident) Current Visit: Yes Status: Acute Qualifiers: CVA mechanism: occlusion Precerebral and cerebral artery: unspecified precerebral artery Qualified Code(s): I63.20 - Cerebral infarction due to unspecified occlusion or stenosis of unspecified precerebral arteries (3) Goals of care, counseling/discussion Current Visit: Yes Status: Acute (4) Pain after cerebrovascular accident (CVA) Current Visit: Yes Status: Acute - Time Spent With Patient Total time spent is greater than 50% in coordination of care (as documented) at patient's floor/unit and/or counseling patient: - Attending Attestation I examined this patient and my medical decision-making was reviewed with the Resident Physician. I agree with the documented findings, disposition and treatment plan as described except to the extent set forth below. Palliative Quality Code Status: 01/05/17 14:53 Resuscitation Status: Active [RES] Stat Comment: Resuscitation Status: DNR-Comfort Care
[2017-01-06] MEDS: Haloperidol Oral Conc 10 MG/5 ML UDC PO PRN (08:39)
[2017-01-06] MEDS ORDERED: FLUoxetine HCl Oral Soln 20 MG/5 ML UDC GTUBE SCH (09:00)
--- NOTE | 2017-01-06 12:10 | Event Note ---
Date of Encounter: 01/06/17 Time of Encounter: 12:08 Hospice medical assistant dermatology certification of terminal illness: Hospice benefit. Start: 01/05/2017 Hospice benefit. In: +90 days Palliative performance scale: 20% History: Patient with a history of AML as well as multiple CVAs, at this point not taking any nothing by mouth and in a rapid decline probably secondary to repeat CVAs. Family wishes no further aggressive care, with the change in status over the last several weeks out no longer taking any nutrition and not having any artificial nutrition provided I believe that These findings support a life expectancy of 6 months or less. I attest that I have compose the above narrative based on my review of the patient's medical records, and or on my examination of the patient. Real Heller M.D. Associate medical doctor nuclear medicine. [facility]
[2017-01-06] MEDS ORDERED: *HR* LORazepam Oral Conc 2 MG/ML PO PRN (16:28)
[2017-01-06 18:45] VITALS: BP 95/55
[2017-01-06] MEDS: Bisacodyl 10 MG RECTAL SUPPOSITORY RC SCH (20:24)
--- NOTE | 2017-01-07 09:39 | Death Note ---
Discharge Sum: Summary - Date and Time Date of admission: 01/05/17 19:18 Date of : 01/07/17 Time of : 02:15 - Summary Details: Patient had been under general inpatient hospice care and was transferred here from [place] for end of life care and symptom management. Medications for comfort did required increasing yesterday pm as pt was yelling out in pain. I was notified by staff by phone that he at 0215 01/07/2017 - Additional Data Confirmation of as documented by pronouncing clinician: no pulse, no respirations, no heart sounds Attending physician: Real Heller MD Was code activated?: No Autopsy requested?: No Hospice patient?: Yes Discharge Sum: Diag - PCOD Probable Cause of : Respiratory arrest Discharge Sum: Prov - Provider Primary care physician: Anne Bell MD Admitting clinician: Real Heller Attending physician on admission: Real Heller Consults: 01/05/17 14:53 Consult to Palliative Care [CONS] Routine Comment: Consulting Provider: Palliative Care Erma Reason for Consult: cross coverage Call Completed: Yes
== END 2017-01-07 02:15 | disposition expired | DRG 834 ==
LOC: 2ANU 19:18
PROVIDERS: ADMIT Family Medicine Hospice and Palliative Medicine; ATTEND Family Medicine Hospice and Palliative Medicine